=== PATIENT | male | born 1965 | race Caucasian/White ===

== ENCOUNTER 2019-03-24 10:31 | Emergency (ER) | payer SELFPAY ==
[2019-03-24 10:57] VITALS: BP 156/87
--- NOTE | 2019-03-24 11:22 | UC ---
Neck Pain HPI - HPI Summary HPI Summary: 2 mo starting with left supraclavicular lymph node that has enlarged and now there is swelling and pain radiating into the left face and sikh. No fevers or chills. No sob or cough. he is a smoker. No pcp care for years. He let his insurance run out. No dental pain or sinus pain. No significant headache. No vomiting, wt loss or night sweats. - History of Current Complaint Chief Complaint: UCGeneralIllness Stated Complaint: SWELLING IN NECK,HEADACHE Time Seen by Provider: 03/24/19 11:03 Hx Obtained From: Patient Onset/Duration Of Injury/Symptoms: Months Mechanism Of Injury: No Known Trauma Onset/Duration: Gradual Onset Severity: Moderate Pain Intensity: 0 Location: Discrete At: - left neck. Character: Dull, Aching Aggravating Factors: Movement Alleviating Factors: Nothing Associated Signs & Symptoms: Positive: Swelling, Redness - Allergies/Home Medications Allergies/Adverse Reactions: Allergies Allergy/AdvReac Type Severity Reaction Status Date / Time No Known Allergies Allergy Verified 03/24/19 10:58 Home Medications: Home Medications NK [No Home Medications Reported] 03/24/19 [History Confirmed 03/24/19] PMH/Surg Hx/FS Hx/Imm Hx Previously Healthy: No - smoking. NO pcp care for years. - Surgical History Surgical History: None - Family History Known Family History: Positive: None - denies thyroid disease. - Social History Occupation: Employed Full-time Alcohol Use: Occasionally Substance Use Type: Marijuana Smoking Status (MU): Light Every Day Tobacco Smoker Review of Systems All Other Systems Reviewed And Are Negative: Yes Constitutional: Positive: Negative Eyes: Positive: Negative ENT: Negative: Epistaxis, Dental Pain, Sore Throat, Ear Ache, Nasal Discharge, Sinus Congestion, Sinus Pain/Tenderness Respiratory: Positive: Negative Cardiovascular: Positive: Negative Gastrointestinal: Positive: Negative Motor: Positive: Negative Is Patient Immunocompromised?: Yes Physical Exam Triage Information Reviewed: Yes Appearance: Well-Appearing, No Pain Distress, Well-Nourished Vital Signs: Initial Vital Signs Temp 98.4 F 03/24/19 10:51 Pulse 102 03/24/19 10:51 Resp 16 03/24/19 10:51 BP 156/87 03/24/19 10:51 Pulse Ox 99 03/24/19 10:51 Vital Signs Reviewed: Yes Eyes: Positive: Conjunctiva Clear ENT: Positive: Pharynx normal, Nasal congestion, TMs normal, Hoarse voice, Uvula midline. Negative: Pharyngeal erythema, Sinus tenderness Dental: Positive: Cervical Lymphadenopathy. Negative: Percussion Tenderness @, Gross Decay/Caries @, Dental Fracture @, Abscess @ Neck: Positive: Enlarged Nodes @, Other: - Left supraclavicular fixed hard node with left face lymph edema. Not hot or tender. No inudration. Respiratory: Positive: Lungs clear, Normal breath sounds, No respiratory distress, No accessory muscle use. Negative: Respiratory distress, Decreased breath sounds, Accessory muscle use, Crackles, Rhonchi, Stridor, Wheezing Cardiovascular: Positive: Tachycardia Abdomen Description: Positive: Nontender, No Organomegaly, Soft. Negative: Distended, Guarding Bowel Sounds: Positive: Present Musculoskeletal: Positive: Strength Intact, ROM Intact, No Edema Neurological: Positive: Alert, Muscle Tone Normal. Negative: Fatigued, Lethargic, Unresponsive Psychological: Positive: Age Appropriate Behavior Skin Exam: Normal Neck Pain Course/Dx - Course Course Of Treatment: He has no pcp to f/u with we had him go right to the ED for workup of what is likely cancer in the thorax or abd. Hr also elevated. THis was all relayed to Mary GARCIA in [facility] which the patient requested to transfer to. I recommended ambulance transfer and pt and significant other did not accept. We discuss possibility of infection or etiology of something serious in the chest or abd. - Differential Dx/Diagnosis Provider Diagnosis: Lymph node disorder, Lymph node enlargement Discharge - Sign-Out/Discharge Documenting (check all that apply): Patient Departure All imaging exams completed and their final reports reviewed: No Studies - Discharge Plan Condition: Guarded Disposition: TRANS HIGHER L OF CARE FAC Referrals: Scar Deal PA [Primary Care Provider] - Additional Instructions: Go right to [facility] for labs and CT scans. - Billing Disposition and Condition Condition: GUARDED Disposition: Trans Higher Lvl of Care Fac
== END 2019-03-24 11:23 | disposition short-term general hospital (02) ==
LOC: UCCORT 10:31
DX: I89.9 Noninfective disorder of lymphatic vessels and lymph nodes, unspecified (principal); F17.200 Nicotine dependence, unspecified, uncomplicated
CPT/HCPCS: 99202; G0463